=== PATIENT | female | born 1995 | race American Indian/Alaskan Native ===

== ENCOUNTER 2016-11-19 20:08 | Inpatient (IN) | payer MEDICAID ==
[2016-11-19] MEDS ORDERED: LACTATED RINGERS 1,000 ML ONE (20:56)
[2016-11-19] MEDS ORDERED: MINERAL OIL PO PRN (21:19)
[2016-11-19] MEDS ORDERED: FLUARIX QUAD 2016-2017(36 MOS+) IM ONE (21:19)
[2016-11-19] MEDS ORDERED: SUBLIMAZE IV PRN (21:19)
[2016-11-19] MEDS ORDERED: ZOFRAN IV PRN (21:19)
[2016-11-19] MEDS ORDERED: BRETHINE IVP PRN (21:19)
[2016-11-19] MEDS ORDERED: BRETHINE SUB-Q PRN (21:19)
[2016-11-19] MEDS ORDERED: ePHEDrine SULFATE IV PRN ×2 (21:19→22:53)
[2016-11-19] MEDS ORDERED: PITOCin/NS 20 UNIT/1000ML DRIP 20 UNIT/1,000 ML BAG IV SCH (22:00)
[2016-11-19 22:02] LABS: Hemoglobin 11.3 gm/dl (10.1-14.3); Mean Corpuscular HGB Conc 33 % (30-34); Mean Corpuscular Hemoglobin 29 pg (28-32); Mean Corpuscular Volume 88 fl (79-97); Platelet Count 243 K/mm3 (140-440); Red Blood Count 3.87 M/mm3 (3.65-5.03); Red Cell Distribution Width 14.7 % (13.2-15.2); White Blood Count 18.7 K/mm3 (4.5-11.0)
[2016-11-19] MEDS: LACTATED RINGERS 1,000 ML IV SCH ×2 (22:08→23:10)
[2016-11-19] MEDS ORDERED: ePHEDrine SULFATE ONE (22:26)
--- NOTE | 2016-11-19 22:43 | History and Physical Report ---
History of Present Illness Date of examination: 11/19/16 (Admission exam) Date of admission: 11/19/16 20:54 Chief complaint: Contractions since about 7:30 PM BOWI No VB, normal FM Past History Past Medical History: other (Anemia and GDM this gestation) Past Surgical History: no surgical history Family/Genetic History: hypertension, cancer Social history: single - Obstetrical History Expected Date of Delivery: 12/07/16 Actual Gestation: 37 Week(s) 3 Day(s) : 1 Para: 0 Medications and Allergies Allergies Allergy/AdvReac Type Severity Reaction Status Date / Time No Known Allergies Allergy Verified 01/30/14 17:34 Home Medications Medication Instructions Recorded Confirmed Last Taken Type Vit No.130/Iron/FA 1 each PO QDAY #30 tablet 05/25/16 11/19/16 Rx [ Tablet] Ferrous Sulfate [Feosol] 325 mg PO QDAY 11/19/16 11/19/16 11/19/16 History Active Meds: Active Medications Fentanyl (Sublimaze) 100 mcg IV Q2H PRN PRN Reason: Labor Pain Last Admin: 11/19/16 21:36 Dose: 100 mcg Lactated Ringer's (Lactated Ringers) 1,000 mls @ 125 mls/hr IV DIRECT HANK Last Admin: 11/19/16 22:08 Dose: 125 mls/hr Oxytocin/Sodium Chloride (Pitocin/Ns 20 Unit/1000ml Drip) 20 unit in 1,000 mls @ 125 mls/hr IV DIRECT HANK Mineral Oil (Mineral Oil) 30 ml PO QHS PRN PRN Reason: Constipation Ondansetron HCl (Zofran) 4 mg IV Q8H PRN PRN Reason: Nausea And Vomiting Review of Systems All systems: negative - Vital Signs Vital signs: Vital Signs Pulse BP Pulse Ox 79 137/75 94 11/19/16 20:25 11/19/16 20:25 11/19/16 20:25 Temp Pulse Resp BP Pulse Ox 99.1 F 89 22 140/80 96 11/19/16 21:10 11/19/16 22:38 11/19/16 21:36 11/19/16 22:38 11/19/16 22:38 - Physical Exam Breasts: Positive: normal Cardiovascular: Regular rate Lungs: Positive: Clear to auscultation Abdomen: Positive: normal appearance Genitourinary (Female): Positive: other (VE deferred until pt is comfortable with epidural. IVF is bolusing now) Vagina: Positive: normal moisture. Negative: discharge Cervix: Negative: lesion, discharge Uterus: Positive: normal size, normal contour Adnexa: both: normal Extremities: Positive: normal Deep Tendon Reflex Grade: Normal +2 - Obstetrical FHR: auscultation normal Uterine Contraction Monitor Mode: External Cervical Dilatation: 5.5 (Per RN exam O/A) Uterine Contraction Pattern: Regular Uterine Contraction Intensity: Moderate Results Result Diagrams: 11/19/16 20:50 Abnormal lab results 11/19/16 11/19/16 Range/Units 20:50 21:10 WBC 18.7 H (4.5-11.0) K/mm3 POC Glucose 63 L (70-105) All other labs normal. Assessment and Plan A. 21 y/o G1 @ 37.3 wk EGA in active labor Insufficient PNC starting care at 19 wk EGA GDM: non-compliant with BG logs EFW 7 1/4 lb Morbid obesity Anemia tx this gestation GBS Neg P Routine admission, labs, VS Epidural now per pt request Anticipate
[2016-11-19] MEDS ORDERED: NARCAN 2 MG/2 ML IV PRN (22:53)
--- NOTE | 2016-11-19 22:53 | Anesthesia Consultation ---
Anesthesia Consult and Med Hx Date of service: 11/19/16 - Airway Anesthetic Teeth Evaluation: Good ROM Head & Neck: Adequate Mental/Hyoid Distance: Adequate Mallampati Class: Class II Intubation Access Assessment: Good - Pulmonary Exam CTA: Yes - Cardiac Exam Cardiac Exam: No Murmur - Pre-Operative Health Status ASA Pre-Surgery Classification: ASA2 Proposed Anesthetic Plan: Epidural - Pulmonary Hx Asthma: No COPD: No Hx Pneumonia: No - Cardiovascular System Hx Hypertension: No - Central Nervous System Hx Seizures: No Hx Psychiatric Problems: No - Endocrine Hx Renal Disease: No Hx End Stage Renal Disease: No Hx Hypothyroidism: No Hx Hyperthyroidism: No - Hematic Hx Anemia: Yes (iron) Hx Sickle Cell Disease: No - Other Systems Hx Alcohol Use: No
[2016-11-19] MEDS ORDERED: fentaNYL-BUPIV 2 MCG/ML-0.125% 200 MCG/100 ML BAG EPIDURAL SCH (23:00)
[2016-11-20] MEDS: LACTATED RINGERS 1,000 ML IV SCH (00:27)
--- NOTE | 2016-11-20 00:30 | Progress Note ---
Assessment and Plan A. Comfortable with epidural Cat II FHR tracing SROM - large amount clear fluid P FSE/IUPC placed Position changes Observe maternal/ status Plan consult Dr Cardona as indicated by maternal/ status Subjective - Subjective Date of service: 11/20/16 Patient reports: other (Comfortable post epidural) Objective - Vital Signs Vital Signs: Vital Signs - 12hr 11/19/16 11/19/16 11/19/16 20:25 20:27 20:28 Temperature 98.6 F Pulse Rate 88 92 H Respiratory 18 Rate Blood Pressure 137/75 O2 Sat by Pulse 93 97 96 Oximetry 11/19/16 11/19/16 11/19/16 21:08 21:10 21:28 Temperature 99.1 F Pulse Rate 96 H 80 Respiratory 22 Rate Blood Pressure 133/85 O2 Sat by Pulse 96 Oximetry 11/19/16 11/19/16 11/19/16 21:33 21:36 21:38 Temperature Pulse Rate 91 H 95 H Respiratory 22 Rate Blood Pressure O2 Sat by Pulse 98 97 Oximetry 11/19/16 11/19/16 11/19/16 21:43 21:48 21:53 Temperature Pulse Rate 102 H 108 H 95 H Respiratory Rate Blood Pressure O2 Sat by Pulse 97 96 96 Oximetry 11/19/16 11/19/16 11/19/16 21:58 22:03 22:08 Temperature Pulse Rate 100 H 96 H 92 H Respiratory Rate Blood Pressure O2 Sat by Pulse 96 96 97 Oximetry 11/19/16 11/19/16 11/19/16 22:13 22:18 22:23 Temperature Pulse Rate 86 93 H 88 Respiratory Rate Blood Pressure O2 Sat by Pulse 96 96 96 Oximetry 11/19/16 11/19/16 11/19/16 22:28 22:33 22:38 Temperature Pulse Rate 89 83 89 Respiratory Rate Blood Pressure 140/80 O2 Sat by Pulse 97 98 96 Oximetry 11/19/16 11/19/16 11/19/16 22:40 22:42 22:43 Temperature Pulse Rate 93 H 97 H 72 Respiratory Rate Blood Pressure 132/76 131/80 O2 Sat by Pulse 91 100 Oximetry 11/19/16 11/19/16 11/19/16 22:44 22:46 22:48 Temperature Pulse Rate 80 88 56 L Respiratory Rate Blood Pressure 123/70 120/69 O2 Sat by Pulse 88 Oximetry 11/19/16 11/19/16 11/19/16 22:49 22:50 22:52 Temperature Pulse Rate 87 88 86 Respiratory Rate Blood Pressure 120/91 111/57 102/55 O2 Sat by Pulse Oximetry 11/19/16 11/19/16 11/19/16 22:53 22:54 22:56 Temperature Pulse Rate 86 90 92 H Respiratory Rate Blood Pressure 113/56 101/55 O2 Sat by Pulse 98 Oximetry 11/19/16 11/19/16 11/19/16 22:58 23:00 23:02 Temperature Pulse Rate 92 H 89 95 H Respiratory Rate Blood Pressure 107/60 117/61 119/65 O2 Sat by Pulse 99 Oximetry 11/19/16 11/19/16 11/19/16 23:03 23:04 23:06 Temperature Pulse Rate 93 H 89 87 Respiratory Rate Blood Pressure 114/55 120/57 O2 Sat by Pulse 99 Oximetry 11/19/16 11/19/16 11/19/16 23:08 23:10 23:11 Temperature Pulse Rate 93 H 210 H 34 L Respiratory Rate Blood Pressure 120/59 118/67 O2 Sat by Pulse 100 80 L Oximetry 11/19/16 11/19/16 11/19/16 23:12 23:13 23:17 Temperature Pulse Rate 88 87 Respiratory 20 Rate Blood Pressure 118/67 O2 Sat by Pulse 100 82 L Oximetry 11/19/16 11/19/16 11/19/16 23:18 23:20 23:24 Temperature 98.0 F Pulse Rate 88 82 Respiratory 20 Rate Blood Pressure O2 Sat by Pulse 100 98 Oximetry 11/19/16 11/19/16 11/19/16 23:28 23:29 23:34 Temperature Pulse Rate 84 90 88 Respiratory Rate Blood Pressure 121/74 O2 Sat by Pulse 99 100 Oximetry 11/19/16 11/19/16 11/19/16 23:39 23:44 23:46 Temperature Pulse Rate 88 82 76 Respiratory Rate Blood Pressure 97/50 O2 Sat by Pulse 98 98 87 Oximetry 11/19/16 11/19/16 11/19/16 23:49 23:54 23:57 Temperature Pulse Rate 96 H 97 H 93 H Respiratory Rate Blood Pressure 102/56 O2 Sat by Pulse 99 99 Oximetry 11/19/16 11/20/16 11/20/16 23:59 00:04 00:09 Temperature Pulse Rate 86 91 H 93 H Respiratory Rate Blood Pressure O2 Sat by Pulse 100 98 100 Oximetry 11/20/16 11/20/16 11/20/16 00:13 00:14 00:19 Temperature Pulse Rate 88 96 H 95 H Respiratory Rate Blood Pressure 115/53 O2 Sat by Pulse 100 99 Oximetry 11/20/16 00:24 Temperature Pulse Rate 92 H Respiratory Rate Blood Pressure O2 Sat by Pulse 99 Oximetry - Exam Breasts: deferred Cardiovascular: Regular rate Lungs: Normal air movement Abdomen: Present: normal appearance Vulva: both: normal Uterus: Present: normal FHR: category 2 (Normal variability and accels present. Decels mixed early/late) Uterine Contraction Monitor Mode: External Cervical Dilatation: 7.5 Cervical Effacement Percentage: 90 station: -2 Uterine Contraction Pattern: Regular Uterine Contraction Intensity: Moderate Extremities: edema - Labs Labs: Abnormal Labs 11/19/16 11/19/16 20:50 21:10 WBC 18.7 H POC Glucose 63 L Laboratory Results - last 24 hr 11/19/16 11/19/16 11/19/16 20:50 20:50 21:10 WBC 18.7 H RBC 3.87 Hgb 11.3 Hct 34.0 MCV 88 MCH 29 MCHC 33 RDW 14.7 Plt Count 243 POC Glucose 63 L Blood Type A POSITIVE Antibody Screen Negative
[2016-11-20] MEDS ORDERED: PEPCID IV ONE ×2 (01:21→03:26)
[2016-11-20] MEDS ORDERED: BICITRA ONE (01:21)
[2016-11-20] MEDS ORDERED: REGLAN ONE (01:21)
[2016-11-20] MEDS ORDERED: ANCEF/STERILE WATER 2 GM/20 ML 2 GM/20 ML SYRINGE IV ONE (01:22)
[2016-11-20] MEDS ORDERED: ANCEF/STERILE WATER 2 GM/20 ML 2 GM/20 ML SYRINGE IV NR (01:30)
--- NOTE | 2016-11-20 01:52 | Progress Note ---
Assessment and Plan A. Cat II FHR tracing persistent No cx change with adequate ctx No descent P Dr Cardona informed of above info Pt turned over to physician for medical management Subjective - Subjective Date of service: 11/20/16 Patient reports: other (Remains comfortable) Objective - Vital Signs Vital Signs: Vital Signs - 12hr 11/19/16 11/19/16 11/19/16 20:25 20:27 20:28 Temperature 98.6 F Pulse Rate 88 92 H Respiratory 18 Rate Blood Pressure 137/75 O2 Sat by Pulse 93 97 96 Oximetry 11/19/16 11/19/16 11/19/16 21:08 21:10 21:28 Temperature 99.1 F Pulse Rate 96 H 80 Respiratory 22 Rate Blood Pressure 133/85 O2 Sat by Pulse 96 Oximetry 11/19/16 11/19/16 11/19/16 21:33 21:36 21:38 Temperature Pulse Rate 91 H 95 H Respiratory 22 Rate Blood Pressure O2 Sat by Pulse 98 97 Oximetry 11/19/16 11/19/16 11/19/16 21:43 21:48 21:53 Temperature Pulse Rate 102 H 108 H 95 H Respiratory Rate Blood Pressure O2 Sat by Pulse 97 96 96 Oximetry 11/19/16 11/19/16 11/19/16 21:58 22:03 22:08 Temperature Pulse Rate 100 H 96 H 92 H Respiratory Rate Blood Pressure O2 Sat by Pulse 96 96 97 Oximetry 11/19/16 11/19/16 11/19/16 22:13 22:18 22:23 Temperature Pulse Rate 86 93 H 88 Respiratory Rate Blood Pressure O2 Sat by Pulse 96 96 96 Oximetry 11/19/16 11/19/16 11/19/16 22:28 22:33 22:38 Temperature Pulse Rate 89 83 89 Respiratory Rate Blood Pressure 140/80 O2 Sat by Pulse 97 98 96 Oximetry 11/19/16 11/19/16 11/19/16 22:40 22:42 22:43 Temperature Pulse Rate 93 H 97 H 72 Respiratory Rate Blood Pressure 132/76 131/80 O2 Sat by Pulse 91 100 Oximetry 11/19/16 11/19/16 11/19/16 22:44 22:46 22:48 Temperature Pulse Rate 80 88 56 L Respiratory Rate Blood Pressure 123/70 120/69 O2 Sat by Pulse 88 Oximetry 11/19/16 11/19/16 11/19/16 22:49 22:50 22:52 Temperature Pulse Rate 87 88 86 Respiratory Rate Blood Pressure 120/91 111/57 102/55 O2 Sat by Pulse Oximetry 11/19/16 11/19/16 11/19/16 22:53 22:54 22:56 Temperature Pulse Rate 86 90 92 H Respiratory Rate Blood Pressure 113/56 101/55 O2 Sat by Pulse 98 Oximetry 11/19/16 11/19/16 11/19/16 22:58 23:00 23:02 Temperature Pulse Rate 92 H 89 95 H Respiratory Rate Blood Pressure 107/60 117/61 119/65 O2 Sat by Pulse 99 Oximetry 11/19/16 11/19/16 11/19/16 23:03 23:04 23:06 Temperature Pulse Rate 93 H 89 87 Respiratory Rate Blood Pressure 114/55 120/57 O2 Sat by Pulse 99 Oximetry 11/19/16 11/19/16 11/19/16 23:08 23:10 23:11 Temperature Pulse Rate 93 H 210 H 34 L Respiratory Rate Blood Pressure 120/59 118/67 O2 Sat by Pulse 100 80 L Oximetry 11/19/16 11/19/16 11/19/16 23:12 23:13 23:17 Temperature Pulse Rate 88 87 Respiratory 20 Rate Blood Pressure 118/67 O2 Sat by Pulse 100 82 L Oximetry 11/19/16 11/19/16 11/19/16 23:18 23:20 23:24 Temperature 98.0 F Pulse Rate 88 82 Respiratory 20 Rate Blood Pressure O2 Sat by Pulse 100 98 Oximetry 11/19/16 11/19/16 11/19/16 23:28 23:29 23:34 Temperature Pulse Rate 84 90 88 Respiratory Rate Blood Pressure 121/74 O2 Sat by Pulse 99 100 Oximetry 11/19/16 11/19/16 11/19/16 23:39 23:44 23:46 Temperature Pulse Rate 88 82 76 Respiratory Rate Blood Pressure 97/50 O2 Sat by Pulse 98 98 87 Oximetry 11/19/16 11/19/16 11/19/16 23:49 23:54 23:57 Temperature Pulse Rate 96 H 97 H 93 H Respiratory Rate Blood Pressure 102/56 O2 Sat by Pulse 99 99 Oximetry 11/19/16 11/20/16 11/20/16 23:59 00:04 00:09 Temperature Pulse Rate 86 91 H 93 H Respiratory Rate Blood Pressure O2 Sat by Pulse 100 98 100 Oximetry 11/20/16 11/20/16 11/20/16 00:13 00:14 00:19 Temperature Pulse Rate 88 96 H 95 H Respiratory Rate Blood Pressure 115/53 O2 Sat by Pulse 100 99 Oximetry 11/20/16 11/20/16 11/20/16 00:24 00:29 00:34 Temperature Pulse Rate 92 H 100 H 94 H Respiratory Rate Blood Pressure O2 Sat by Pulse 99 100 100 Oximetry 11/20/16 11/20/16 11/20/16 00:39 00:41 00:44 Temperature Pulse Rate 91 H 92 H 94 H Respiratory Rate Blood Pressure 112/51 O2 Sat by Pulse 100 100 Oximetry 11/20/16 11/20/16 11/20/16 00:49 00:54 00:57 Temperature Pulse Rate 88 93 H 94 H Respiratory Rate Blood Pressure 99/53 O2 Sat by Pulse 100 99 Oximetry 11/20/16 11/20/16 11/20/16 00:59 01:04 01:09 Temperature Pulse Rate 94 H 87 87 Respiratory Rate Blood Pressure O2 Sat by Pulse 99 99 99 Oximetry 11/20/16 11/20/16 11/20/16 01:12 01:14 01:19 Temperature Pulse Rate 86 88 90 Respiratory Rate Blood Pressure 103/57 O2 Sat by Pulse 100 100 Oximetry 11/20/16 11/20/16 11/20/16 01:24 01:28 01:29 Temperature Pulse Rate 98 H 93 H 93 H Respiratory Rate Blood Pressure 105/54 O2 Sat by Pulse 100 100 Oximetry 11/20/16 01:34 Temperature Pulse Rate 110 H Respiratory Rate Blood Pressure O2 Sat by Pulse 99 Oximetry - Exam Abdomen: Present: normal appearance, soft Vulva: both: normal FHR: category 2 Uterine Contraction Monitor Mode: Internal Cervical Dilatation: 7.5 Cervical Effacement Percentage: 100 station: -2 Uterine Contraction Pattern: Regular Uterine Contraction Intensity: Strong/Firm Extremities: edema - Labs Labs: Abnormal Labs 11/19/16 11/19/16 20:50 21:10 WBC 18.7 H POC Glucose 63 L Laboratory Results - last 24 hr 11/19/16 11/19/16 11/19/16 20:50 20:50 21:10 WBC 18.7 H RBC 3.87 Hgb 11.3 Hct 34.0 MCV 88 MCH 29 MCHC 33 RDW 14.7 Plt Count 243 POC Glucose 63 L Blood Type A POSITIVE Antibody Screen Negative
[2016-11-20] MEDS ORDERED: XYLOCAINE MPF 2% ONE ×4 (01:58)
[2016-11-20] MEDS ORDERED: NACL 0.9% IR ONE (02:00)
[2016-11-20] MEDS ORDERED: WATER FOR IRRIG STERILE IR ONE (02:00)
[2016-11-20] MEDS ORDERED: MORPHINE ONE ×2 (02:08→02:09)
--- NOTE | 2016-11-20 02:54 | Operative Report ---
Operative Report Operative Report: Date of procedure: 11/20/2016 Pre-operative diagnosis: 1. Intrauterine at 37-3/7 weeks 2. Gestational diabetes 3. Nonreassuring surveillance 4. Failure to progress Post-operative diagnosis: Same Procedure name(s): Primary low transverse section Surgeon: Shawn Cardona MD Molded Candles Wicker: None Anesthesia: Spinal epidural anesthesia by Dr. Emily Peng EBL: 500 mL's Findings: A 3605 g female Apgars 7 at 1 minute 8 at 5 minutes. Normal uterus. Normal tubes and ovaries bilaterally. Procedure: After the patient was prepped and draped in usual sterile fashion, and after satisfactory level of epidural anesthesia was obtained, the skin knife was used to make a transverse skin incision. The incision was excised down to layer of the fascia, which was nicked in the midline and extended laterally using the Bovie cautery. The rectus muscles were dissected off the rectus fascia both superiorly and inferiorly. The rectus bellies in the midline, and the peritoneum was entered under direct visualization. The peritoneal incision was extended superiorly and inferiorly. A bladder flap was created and the bladder blade was then placed. The uterus was scored in a curvilinear linear fashion, entered in the midline revealing clear amniotic fluid. The infant's head was delivered onto the surgical field, and the oropharynx and nasopharynx were bulb suctioned. The rest of the infant's body was delivered, cord was doubly clamped and cut and the infant was handed to the waiting respiratory team. The placenta was manually removed from the uterus, and the uterus removed from its normal anatomical position. After gentle uterine lavage, the incision was inspected and found to be without extensions. It was then closed in 2 layers using 0 Vicryl suture in a running interlocking fashion, the second layer imbricating the first. After good hemostasis was achieved, copious amounts or irrigation was performed, and the gutters were suctioned free of blood and blood clots. Tisseel sealant was sprayed across the uterine incision. The uterus was then returned to its normal anatomical position, and after excellent hemostasis assured, the peritoneum was reapproximated using 3-0 Vicryl suture in a running interlocking fashion, and then the rectus muscles were reapproximated using 3-0 Vicryl suture in a figure- of-eight configuration. The fascia was then reapproximated using 0 Vicryl suture in running interlocking fashion. The subcutaneous layer was made hemostatic using Bovie cautery, the Tisseel sealant was sprayed across the fascial incision and the skin edges reapproximated using 4-0 Vicryl suture in a subcuticular fashion. Patient tolerated the procedure well was transported to recovery in stable condition.
[2016-11-20] MEDS ORDERED: PHENERGAN PR PRN (02:56)
[2016-11-20] MEDS ORDERED: TYLENOL PO PRN (02:56)
[2016-11-20] MEDS ORDERED: MYLICON PO PRN (02:56)
[2016-11-20] MEDS ORDERED: MILK OF MAGNESIA PO PRN (02:56)
[2016-11-20] MEDS ORDERED: TORADOL IV PRN (02:56)
[2016-11-20] MEDS ORDERED: SENOKOT PO PRN (02:56)
[2016-11-20] MEDS ORDERED: NARCAN 0.4 MG/1 ML IV PRN (02:56)
[2016-11-20] MEDS ORDERED: LANSINOH TP PRN (02:56)
[2016-11-20] MEDS ORDERED: TUCKS PAD TP PRN (02:56)
[2016-11-20] MEDS ORDERED: PITOCin/NS 20 UNIT/1000ML DRIP 20 UNIT/1,000 ML BAG IV SCH (03:00)
[2016-11-20] MEDS ORDERED: D5LR 1,000 ML IV SCH (03:00)
[2016-11-20] MEDS ORDERED: SODIUM CHLORIDE FLUSH SYRINGE 10 ML IV PRN (03:00)
--- NOTE | 2016-11-20 03:07 | Post Anesthesia Evaluation ---
- Post Anesthesia Evaluation Patient Participated: Yes Airway Patent: Yes Stable Respiratory Function: Yes Nausea/Vomiting: No Temp > 96.8F: Yes Pain Manageable: Yes Adequeate Hydration: Yes Anesthesia Complications: No
[2016-11-20] MEDS ORDERED: DEMEROL IV PRN (03:09)
[2016-11-20] MEDS ORDERED: REGLAN IV ONE (03:26)
[2016-11-20] MEDS ORDERED: BICITRA PO ONE (03:26)
[2016-11-20] MEDS ORDERED: TYLENOL PO ONE (04:12)
[2016-11-20] MEDS: ANCEF/NS 1 GM/50 ML 1 GM/50 ML BAG IV SCH ×2 (11:27→19:41)
[2016-11-20] MEDS ORDERED: FLUARIX QUAD 2016-2017(36 MOS+) IM ONE (12:00)
[2016-11-20] MEDS: NORCO 5/325 PO PRN ×2 (14:10→21:11)
[2016-11-20] MEDS: MOTRIN PO PRN ×2 (14:12→21:11)
[2016-11-20 15:34] LABS: Hematocrit 29.2 % (30.3-42.9); Hemoglobin 9.7 gm/dl (10.1-14.3)
[2016-11-21] MEDS: PERCOCET 5/325 PO PRN ×3 (00:17→20:54)
[2016-11-21] MEDS ORDERED: M-M-R II VACCINE SUB-Q ONE (02:57)
[2016-11-21] MEDS ORDERED: BOOSTRIX IM ONE (06:00)
[2016-11-21] MEDS: FEOSOL PO SCH ×3 (10:53→22:03)
[2016-11-21] MEDS: PRENATAL VITAMIN PO SCH ×2 (10:53→20:55)
[2016-11-21] MEDS: NORCO 5/325 PO PRN (10:53)
[2016-11-21] MEDS: MOTRIN PO PRN (10:54)
--- NOTE | 2016-11-21 15:11 | Progress Note ---
Subjective Date of service: 11/21/16 Interval history: 1st POD after Patient is in the bed, comfortable. Pain is well under control. Ambulated normally. No residual neurological deficit. No anesthesia complications Objective - Constitutional Vitals: Vital Signs - 12hr 11/21/16 07:55 Temperature 98.5 F Pulse Rate [ 76 Left Radial] Respiratory 18 Rate Blood Pressure 114/70 [Left Arm] - Labs CBC & Chem 7: 11/20/16 15:03 Labs: Abnormal lab results 11/20/16 Range/Units 15:03 Hgb 9.7 L (10.1-14.3) gm/dl Hct 29.2 L (30.3-42.9) %
--- NOTE | 2016-11-21 17:30 | Progress Note ---
Assessment and Plan A: POD #1 S/P LTCS for failure to progress. Infant in NICU- Pumping for . Ambulating, eating and voiding without difficulty. Pain well controlled. P: Routine /post op care Encouraged ambulation Possible d/c tomorrow Subjective - Subjective Date of service: 11/21/16 Principal diagnosis: POD#1 Interval history: See H&P and Operative note Patient reports: appetite normal, voiding normally, pain well controlled, flatus , ambulating normally : in NICU (Pumping breast in preperation for . consulted.) Objective - Vital Signs Latest vital signs: Vital Signs Temp Pulse Pulse Resp BP 11/21/16 16:30 98.3 F 86 20 112/64 11/21/16 07:55 98.5 F 76 18 114/70 11/20/16 23:00 98 F 80 22 120/60 11/20/16 20:00 98.6 F 60 22 116/60 Intake and Output 11/21/16 11/21/16 11/21/16 06:59 14:59 22:59 Intake Total 400 480 Output Total 900 Balance 400 -420 Intake: Oral 400 480 Output: Urine 900 Void 900 Other: Total, Intake Amount 400 240 Total, Output Amount 900 # Voids Void 1 2 - Exam Cardiovascular: Present: Regular rate Lungs: Present: Normal air movement Abdomen: Present: normal appearance, soft Vulva: both: normal (small yomi lochia, no clots) Uterus: Present: normal, firm, fundal height at umbilicus Extremities: Present: normal Deep Tendon Reflex Grade: Normal +2 Incision: Present: normal, dry, intact, dressed (LTCS closed with sq sutures, steri strips intact, covered with [place]. C,D,I.)
[2016-11-22] MEDS: PERCOCET 5/325 PO PRN ×3 (05:32→22:09)
[2016-11-22] MEDS: PRENATAL VITAMIN PO SCH ×2 (05:33→10:15)
--- NOTE | 2016-11-22 09:51 | Progress Note ---
Assessment and Plan A: POD#2 s/p LTCS for failure to progress Ambulating, eating and voiding without issue P: Continue normal /postop care Encouraged ambulation Plan for discharge tomorrow. Subjective - Subjective Date of service: 11/22/16 Principal diagnosis: POD#2 Interval history: See H&P and Operative note Patient reports: appetite normal, voiding normally, pain well controlled, flatus , ambulating normally (Pt walking regualrly to NICU to visit baby without issue. ) [place]: in NICU Objective - Vital Signs Latest vital signs: Vital Signs Temp Pulse Pulse Resp BP 11/22/16 05:32 18 11/21/16 23:45 98 F 90 18 133/58 11/21/16 20:54 18 11/21/16 16:30 98.3 F 86 20 112/64 Intake and Output 11/21/16 11/22/16 11/22/16 22:59 06:59 14:59 Intake Total 360 480 Balance 360 480 Intake: Oral 360 Intake, Free Water 480 Other: Total, Intake Amount 360 # Voids Void 1 1 - Exam Breasts: Present: deferred Cardiovascular: Present: Regular rate Lungs: Present: Normal air movement Abdomen: Present: normal appearance, soft Uterus: Present: normal, firm Extremities: Present: normal Deep Tendon Reflex Grade: Normal +2 Incision: Present: normal, dry, intact (closed with subq sutures with steristrips with tefla dressing inplace.)
[2016-11-22] MEDS: FEOSOL PO SCH (10:15)
[2016-11-23] MEDS: MOTRIN PO PRN (09:17)
[2016-11-23] MEDS: PERCOCET 5/325 PO PRN (09:18)
--- NOTE | 2016-11-23 10:30 | Progress Note ---
Assessment and Plan A: POD #3 Stable GDM P: Follow routine Post Op Orders D/C Home Today RTO in One Week Subjective - Subjective Date of service: 11/23/16 Principal diagnosis: POD #3 Patient reports: appetite normal, voiding normally, pain well controlled, flatus , ambulating normally : in NICU Objective - Vital Signs Latest vital signs: Vital Signs Temp Pulse Resp BP 11/23/16 08:18 98.5 F 81 18 132/78 11/23/16 00:25 98.6 F 75 16 120/52 11/22/16 22:09 20 11/22/16 19:50 98 F 76 22 114/64 11/22/16 15:46 98.1 F 76 18 112/56 Intake and Output 11/22/16 11/23/16 11/23/16 22:59 06:59 14:59 Intake Total 840 800 240 Balance 840 800 240 Intake: Oral 600 800 240 Intake, Free Water 240 Other: Total, Intake Amount 240 800 240 # Voids Void 1 1 - Exam Breasts: Present: normal Cardiovascular: Present: Regular rate Lungs: Present: Clear to auscultation Abdomen: Present: normal appearance, soft, normal bowel sounds Uterus: Present: normal, firm, fundal height below umbilicus Extremities: Present: normal Incision: Present: normal, dry, intact - Labs Labs: Abnormal lab results 11/22/16 11/22/16 Range/Units 11:40 16:11 POC Glucose 69 L 107 H (70-105)
--- NOTE | 2016-11-23 10:32 | Discharge Summary ---
Providers - Providers Date of Admission: 11/19/16 20:54 Date of discharge: 11/23/16 Attending physician: DIONI GRIFFIN MD Primary care physician: DIONI GRIFFIN MD Hospitalization Reason for admission: active labor Delivery: Procedure: primary low transverse Episiotomy: none Laceration: none Incision: normal, dry, intact Other procedures: none complications: none Discharge diagnosis: IUP at term delivered [place] baby: female Condition at discharge: Good Disposition: DISCHARGED TO HOME OR SELFCARE Plan - Discharge Medications Prescriptions: Ferrous Sulfate [Feosol 325 MG tab] 325 mg PO BID #60 tablet HYDROcodone/APAP 5-325 [[place] 5/325] 1 each PO Q6HR PRN #30 tablet PRN Reason: Pain Ibuprofen [Motrin] 800 mg PO Q8HR PRN #30 tablet PRN Reason: Moder Pain Unrelieved By [place] Vit W-Ca,Fe,FA(<1 mg) [ Vitamins] 1 each PO DAILY #30 tablet - Provider Discharge Summary Activity: routine, no sex for 6 weeks, no heavy lifting 4 weeks, no strenuous exercise Diet: routine Instructions: routine Additional instructions: [] Smoking cessation referral if applicable(refer to patient education folder for contact #) [] Refer to [facility] Booklet Call your doctor immediately for: * Fever > 100.5 * Heavy vaginal bleeding ( >1 pad per hour) * Severe persistent headache * Shortness of breath * Reddened, hot, painful area to leg or breast * Drainage or odor from incision. * Keep incision clean and dry at all times and follow doctor's instructions regarding bathing/showering - Follow up plan Follow up: TERE LOVE CNM [Advanced Practice Nurse] - 7 Days
[2016-11-23 19:37] VITALS: BP 125/71
== END 2016-11-23 13:50 | disposition home or self-care (01) | DRG 765 ==
LOC: TRG 20:08 → LD 20:54 → APU 11-20 02:05 → OB 11-20 05:13
PROVIDERS: ADMIT Obstetrics & Gynecology; ATTEND Obstetrics & Gynecology
PROC: 0US90ZZ Reposition Uterus, Open Approach (ICD-10-PCS; principal; 2016-11-20)
PROC: 10D00Z1 Extraction of Products of Conception, Low, Open Approach (ICD-10-PCS; principal; 2016-11-20)
DX: O24.429 Gestational diabetes mellitus in childbirth, unspecified control (principal); D62 Acute posthemorrhagic anemia; Z68.41 Body mass index [BMI] 40.0-44.9, adult; O99.02 Anemia complicating childbirth; E66.01 Morbid (severe) obesity due to excess calories; Z3A.37 37 weeks gestation of pregnancy; Z37.0 Single live birth; O32.4XX0 Maternal care for high head at term, not applicable or unspecified
CPT/HCPCS: 36415; 82962; 85014; 85018; 85027; 86850; 86900; 86901; 90471; 90686; 90715; 99211; A6250; C9250; G0463; J0690; J2175; J2270; J2590; J2765; J3010; J7120; J7121

== ENCOUNTER 2018-01-17 03:12 | Emergency (ER) | payer SELFPAY ==
[2018-01-17 03:37] VITALS: BP 144/89
== END 2018-01-17 09:00 | disposition left against medical advice (07) ==
LOC: ED 03:12
DX: R20.0 Anesthesia of skin (principal); Z53.21 Procedure and treatment not carried out due to patient leaving prior to being seen by health care provider